=== PATIENT | female | born 1945 | race Caucasian/White ===

== ENCOUNTER 2025-06-06 15:17 | Emergency (ER) | payer MEDICARE, SELFPAY ==
[2025-06-06] VITALS (17 sets, daily range): BP systolic 132–146; BP diastolic 67–87; BMI 25.6
--- NOTE | 2025-06-06 15:51 | ED.MUSCINJ ---
HPI-Injury
<Chani Santacruz NP - Last Filed: 06/06/25 22:46>
General
Chief Complaint: Musculo-Skeletal Complaint
Source: patient
Exam Limitations: none
Time Seen by Provider: 06/06/25 15:20
Nursing documentation reviewed up to this point in time: agreed with
History of Present Illness-Injury
Is this injury a work related problem?: No
Is pt an associate of [facility]?: No
Initial Injury comments:
Patient states she tripped on a step and fell. Fell forward hitting face on pavement. No LOC. She has bruising and swelling to nose, bilateral orbits. COmplains of pain to left wrist. Brought to ED via EMS for eval. 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
Past History
<Chani Santacruz NP - Last Filed: 06/06/25 22:46>
Past History
ED Past Medical History: GERD, HTN and Other (stress incontinence)
ED Past Surgical History: Orthopedic
Review of Systems
<Chani Santacruz NP - Last Filed: 06/06/25 22:46>
Review of Systems
Allergies reviewed?: Yes
All Other Systems: ROS reviewed and negative except as documented in HPI and ROS
Constitutional: Reports no symptoms
EENT: Reports no symptoms
Respiratory: Reports no symptoms
Cardiac: Reports no symptoms
ABD/GI: Reports no symptoms
: Reports no symptoms
Musculoskeletal: Reports joint pain (left wrist pain)
Skin: Reports other (bruising and swelling to nose, orbits, lip. Abrasion right wrist)
Neurological: Reports no symptoms
Psychiatric: Reports no symptoms
Musculoskeletal Injury Exam
<Chani Santacruz [employer]IDER MECH[employer]IC - Last Filed: 06/06/25 22:46>
Musculoskeletal Injury Exam
Left Wrist:
Pain with Movement?: Moderate
Tender to palpation?: Moderate
Soft tissue swelling?: Moderate
External deformity and angulation?: Moderate
Joint effusion?: None
Contusion?: Moderate
Hematoma-local bleeding into tissue?: Moderate
Strain- Sprain- Tear (Connective tissue injury)?: Moderate
Crepitus with movement?: No
Joint instability?: No
Malalignment/deformity?: No
Range of motion: Limited
Distal skin color and temperature: normal-warm & good color
Capillary Refill: normal
Normal distal neurovascular exam?: Yes
Peripheral Pulses: radial (left): 3+
Skin Exam
<Chani Santacruz NP - Last Filed: 06/06/25 22:46>
Abrasion
Right Wrist:
Description of abrasion: superfical/clean
Phy Exam
<Chani Santacruz SIDER MECH[employer]IC - Last Filed: 06/06/25 22:46>
General Physical Exam
General Presentation: mild distress
General age: appears stated age
General Skin: warm and dry
General Habitus: normal
Eye Exam
Eye Exam: PERRL, EOMI, conjunctiva normal and globe normal
Cardiovascular Exam
Cardiovascular Exam: regular rate/rhythm and no edema
Neurological Exam
Neurological Exam: alert, oriented x3, CN II-XII intact, no motor deficits, no sensory deficits and speech normal
Musculoskeletal Exam
Musculoskeletal Exam: neuro vasc intact
Skin Exam
Skin Exam: normal color, warm/dry and no rash
Psychiatric Exam
Psychiatric Exam: normal mood/affect
Injury Course
<Chani Santacruz SIDER MECH[employer]IC - Last Filed: 06/06/25 22:46>
Orders/Labs/Results
Orders:
Orders
06/06/25 15:49
CT Head W/o Iv Contrast Urgent
Comment:
Reason For Exam: fall
Cervical Spine wo Contrast CT [CT Cervical Spine W/o Iv Contr] Urgent
Comment:
Reason For Exam: fall
Facial Bones wo Contrast CT [CT Facial Bones W/o Iv Contras] Urgent
Comment:
Reason For Exam: fall
HYDROmorphone [Dilaudid] 0.5 mg IV NOW STA
Ondansetron Injectable [Zofran] 4 mg IV NOW STA
Wrist, Left 3 Views CR [CR Wrist - Left Min 3 Views] Urgent
Comment:
Reason For Exam: fall
06/06/25 18:21
Propofol [Diprivan] 20 ml .ROUTE .STK-MED
06/06/25 18:31
ASA Classification Routine
Propofol [Diprivan] 30 mg IV NOW STA
06/06/25 18:36
CR Wrist - Left Min 2 Views Urgent
Comment: portable
Reason For Exam: post reduction
06/06/25 18:39
Ketorolac [Toradol] 15 mg IV NOW STA
Ketorolac [Toradol] 30 mg .ROUTE .STK-MED ONE
<Deann Orta, DO - Last Filed: 06/06/25 20:18>
Orders/Labs/Results
Orders:
Orders
06/06/25 15:49
CT Head W/o Iv Contrast Urgent
Comment:
Reason For Exam: fall
Cervical Spine wo Contrast CT [CT Cervical Spine W/o Iv Contr] Urgent
Comment:
Reason For Exam: fall
Facial Bones wo Contrast CT [CT Facial Bones W/o Iv Contras] Urgent
Comment:
Reason For Exam: fall
HYDROmorphone [Dilaudid] 0.5 mg IV NOW STA
Ondansetron Injectable [Zofran] 4 mg IV NOW STA
Wrist, Left 3 Views CR [CR Wrist - Left Min 3 Views] Urgent
Comment:
Reason For Exam: fall
06/06/25 18:21
Propofol [Diprivan] 20 ml .ROUTE .STK-MED
06/06/25 18:31
ASA Classification Routine
Propofol [Diprivan] 30 mg IV NOW STA
06/06/25 18:36
CR Wrist - Left Min 2 Views Urgent
Comment: portable
Reason For Exam: post reduction
06/06/25 18:39
Ketorolac [Toradol] 15 mg IV NOW STA
Ketorolac [Toradol] 30 mg .ROUTE .STK-MED ONE
Procedures
<Chani Santacruz, SIDER MECHANIC - Last Filed: 06/06/25 22:46>
Joint/Fracture Reduction
Left Wrist:
Indication for procedure:: comminuted, angulated fx left wrist
Procedure completed by: Saad Rincon
Consent form signed: Yes
Joint reduced: with anesthesia sedation
Anesthesia/sedation: Moderate sedation
Injury was: closed
Further treatement: needs further treatment
Post reduction exam: stable
Capillary Refill: normal
Normal distal neurovascular exam?: Yes
Peripheral Pulses: radial (left): 3+
<Deann Orta, DO - Last Filed: 06/06/25 20:18>
Moderate Sedation
ASA Risk Score: Class II
Chart and allergies reviewed: Yes
Consent for anesthesia obtained: Yes
Time out completed (validating right patient & procedure): Yes
Moderate Sedation Start Time(when first medication is given): 18:34
History of difficult intubation: No
Airway free of obstruction: Yes
Patient has a gag reflex: Yes
Patient is able to open mouth: Yes
Patient has no dentures: Yes
Patient has no loose teeth: Yes
Medication administered by Provider during Moderate Sedation: IV Propofol (mg)
Total dose administered: 30
Time drug administered: 18:34
<Chani Santacruz NP - Last Filed: 06/06/25 22:46>
*Radiology
Radiology exam reviewed: radiology read reviewed
*Pulse Oximetry
SaO2: 98
Oxygen Mode of Delivery: Room air
Patient hypoxic: no
*Critical Care Note
Total Time (30-74mins, 75-104mins- exclusive of procedures): Not Applicable
<Chani Santacruz NP - Last Filed: 06/06/25 22:46>
Update Note
Update Note:
Patient to ED after trip and fall today. Hit face on pavement. +subtle nasal bone fx noted on facial CT. Head CT neg for bleeding, fx. Cervical CT with chronic findings. All results were discussed with her. SHe confirms cervical chronic
findings. States she had a cervical MRI 1 mos ago with same results. Left wrist wth comminuted, angulated distal radius fx. Fx reduced under moderate sedation (adminstered by Dr. Orta), satisfactory closed reduction by Saad Rincon PA-C.
SHe is discharged home and will follow up with her private orthopedic provider in AM.
ED Attending Note
<Chani Santacruz NP - Last Filed: 06/06/25 22:46>
-
Portions of this chart may have been created with voice recognition software.� Occasional wrong word or��sound alike� substitutions may have occurred due to the inherent limitations of voice recognition software.
<Deann Orta DO - Last Filed: 06/06/25 20:18>
ED Attending Note
Patient seen and examined by attending physician: Yes
I performed the substantive portion of visit, reviewed & personally made and approve the management plan that is documented in note by myself or LANCE.: Yes
I performed a history and physical exam of patient and discussed management with resident, I reviewed resident's note and agree with documented findings and plan of care.: Yes
ED Attending Note:
80-year-old female presents to the ER for evaluation of severe facial and left wrist pain after she tripped and fell forward. No loss of consciousness. She is not on any blood thinners. Vital signs reviewed, patient is awake, alert, appears in no
acute distress, significant swelling ecchymosis and pharmacy noted to mid face, PERRL, EOMI, GCS is 15, left wrist with significant dinner fork deformity and ecchymosis, brisk cap refill present to the digits of the left hand. I provided conscious
sedation with physician special events assistant utilize direct traction for fracture reduction and splinting. Patient had mild sedation with 30 mg of propofol administered, no airway compromise. Tolerated procedural well. Additional Toradol was given for pain
relief.
Discharge Plan
Departure
Patient Disposition: Home (Routine Discharge)
Date of Disposition: 06/06/25
Time of Disposition: 19:28
Patient with high blood pressure during this ER visit?: No
Condition: Good
Covid-19: Not Applicable
Discharge Problem:
Head injury, Closed fracture nose, Fracture of wrist
Instructions: Nose fracture, Taking care of bruises, Head injury in adults, How to Use a Shoulder Sling, Using Cold for Pain, Wrist Fracture
Prescriptions:
New
hydrocodone-acetaminophen 5-325 mg tablet
1 tab PO Q4H PRN (Reason: Pain) Qty: 14 0RF
Referrals:
Rajat Dean DO [Family Provider]
Activity Restrictions/Additional Instructions:
Follow up with your orthopedic provider in the AM.
Interventions
Interventions:
*Risk Screen - Suicide Last Done: 06/06/25 15:19
*General Assessment Last Done: 06/06/25 15:19
*Neglect/Abuse Screening Last Done: 06/06/25 15:19
*ED COVID-19 Vaccine History Last Done: 06/06/25 15:19
*Nursing Disposition Last Done: 06/06/25 20:10
ED-Musculoskeletal Assessment Last Done: 06/06/25 16:15
Discharge Date and Time
Discharge Date/Time: 06/06/25 20:11
Print Language: [id number]
[2025-06-06] MEDS: ZOFRAN 4 MG IV (16:20)
[2025-06-06] MEDS: DILAUDID 0.5 MG IV (16:20)
[2025-06-06] MEDS: TORADOL 15 MG IV (18:41)
== END 2025-06-06 20:11 | disposition home or self-care (01) ==
LOC: EMR 15:17
PROVIDERS: EMERGENCY PHYSICIAN Emergency Medicine; FAMILY PHYSICIAN Family Medicine
DX: S02.2XXA Fracture of nasal bones, initial encounter for closed fracture (principal); S52.572A Other intraarticular fracture of lower end of left radius, initial encounter for closed fracture; S52.612A Displaced fracture of left ulna styloid process, initial encounter for closed fracture; S00.83XA Contusion of other part of head, initial encounter; W18.09XA Striking against other object with subsequent fall, initial encounter; I10 Essential (primary) hypertension
CPT/HCPCS: 25605; 99152; 96374; 96375; 99285; 70450; 70486; 72125; 73100; 73110